=== PATIENT | female | born 1970 | race Caucasian/White ===

== ENCOUNTER 2016-12-30 08:49 | Inpatient (IN) | payer OTHER ==
--- NOTE | 2016-12-21 10:11 | PAT Medication Instructions ---
Service Date Dec 21, 2016. Current Home Medication List Ascorbic Acid (Vitamin C Gummie 120 mg), 1 TAB PO QAM Melatonin (Melatonin Maximum Strengt), 1 TAB PO HS PRN for PRN Oxycodone Ir (Roxicodone Ir), 5 MG PO Q4H PRN for Severe Pain Medication Instructions For Your Scheduled Surgery - Hold the following medications the morning of surgery: Ascorbic Acid (Vitamin C Gummie 120 mg), 1 TAB PO QAM - Take the following medications the morning of surgery with a sip of water OTHERWISE NOTHING TO EAT OR DRINK AFTER MIDNIGHT: Oxycodone Ir (Roxicodone Ir), 5 MG PO Q4H PRN for Severe Pain (may take up to 4 hours prior to surgery if needed) - Take the following medications as scheduled the night before surgery: Melatonin (Melatonin Maximum Strengt), 1 TAB PO HS PRN Oxycodone Ir (Roxicodone Ir), 5 MG PO Q4H PRN for Severe Pain If you have any questions please call us at [phone] or [phone] or [phone]
--- NOTE | 2016-12-21 10:57 | DIAGNOSTIC IMAGING REPORT ---
TWO VIEW CHEST CLINICAL HISTORY: Preoperative examination. FINDINGS: PA and lateral chest radiographs are compared to study dated 08/13/2014. The cardiomediastinal silhouette is unremarkable. The lungs and pleural spaces are clear. There is no pneumothorax. The bony thorax appears intact. Fusion hardware is noted in the lower cervical spine. IMPRESSION: No active disease in the chest. Electronically signed by: Hiren Piña M.D. 12/21/2016 10:56 AM Dictated Date/Time: 12/21/2016 10:55 AM
[2016-12-21 11:27] LABS: BASO % 0.3 %; BASO ABS # 0.02 K/uL (0-0.2); COMPLETE YES; EOS % 1.6 %; HEMATOCRIT 39.6 % (37-47); IG% 0.3 %; LYMPH % 29.8 %; LYMPH ABS # 2.07 K/uL (1.2-3.4); MEAN CORPUSCULAR HEMOGLOBIN 27.7 pg (25-34); MEAN CORPUSCULAR HGB CONC 33.8 g/dl (32-36); MEAN PLATELET VOLUME 9.1 fL (7.4-10.4); MONO % 4.5 %; NEUT % 63.5 %; PLATELET COUNT 253 K/uL (130-400); RED BLOOD COUNT 4.83 M/uL (4.2-5.4); WHITE BLOOD COUNT 6.95 K/uL (4.8-10.8)
[2016-12-21 11:33] LABS: URINE APPEARANCE CLEAR (CLEAR); URINE BILIRUBIN NEG (NEG); URINE COLOR YELLOW; URINE NITRITE NEG (NEG); URINE PH 7.5 (4.5-7.5); URINE SPECIFIC GRAVITY 1.011 (1.000-1.030); UROBILINOGEN NEG (NEG)
[2016-12-21 11:37] LABS: MANUAL MICROSCOPIC REQUIRED? NO; REVIEW REQ? NO
[2016-12-21 11:58] LABS: BUN/CREATININE RATIO 13.7 (10-20); CALCIUM 8.8 mg/dl (8.5-10.1); CREATININE 0.71 mg/dl (0.60-1.20); POTASSIUM 4.3 mmol/L (3.5-5.1)
--- NOTE | 2016-12-29 11:49 | HISTORY & PHYSICAL EXAMINATION ---
DATE OF ADMISSION: 12/30/2016 HISTORY OF PRESENT ILLNESS: The patient presents to our office with complaint of axial neck pain with radiation into the interscapular area. She denies radiating pain into her shoulder and arms. Denies numbness or tingling. She is still working. She has tried epidural injections in [place] as well as massage therapy. Denies dysphonia or dysphagia. PAST MEDICAL HISTORY: Significant for none. PAST SURGICAL HISTORY: Significant for ACDF, tonsillectomy and laparoscopy. ALLERGIES: None listed. MEDICATIONS: She denies. SOCIAL HISTORY: She is . Denies tobacco use and denies alcohol use. REVIEW OF SYSTEMS: Significant for neck pain. FAMILY HISTORY: Significant for cancer and arthritis. REVIEW OF SYSTEMS: Significant for neck pain. PHYSICAL EXAMINATION: HEENT: Speech appropriate. CARDIOPULMONARY: No gross abnormalities. ABDOMEN: Soft, nontender. GENITOURINARY: Deferred. NEUROLOGIC: Cranial nerves II-XII grossly intact. MUSCULOSKELETAL: She has a well-healed anterior cervical incision. Strength is intact bilateral upper extremities. Ambulates with an independent steady gait. ASSESSMENT: Spinal stenosis, possible hardware failure. PLAN: At this point in time, we have reviewed surgical plan, which would include posterior cervical fusion C3 through T3 including possible decompression as well as an anterior approach which would require removal of fractured hardware. She wished to proceed as soon as possible. Risks, benefits, pros, cons, and alternatives were outlined in detail. [place]
[2016-12-30] VITALS (13 sets, daily range): BP systolic 129–180; BP diastolic 67–97; PULSE 56–68; TEMP 36.4–36.8; O2SAT 93–100; Ht 165.1 cm; Wt 83.5 kg
[~2016-12-30] VITALS: Ht 165.1 cm; Wt 83.5 kg
--- NOTE | 2016-12-30 07:30 | History & Physical Bridge Note ---
H&P Re-Evaluation Bridge Note: I have examined the patient, reviewed the History & Physical and in the interval since the performance of the History & Physical I have noted the following changes of clinical significance: No changes noted
[~2016-12-30 08:49] MED LIST: ASCO1CHW13 PO; CEFAZOLIN 2000 MG/60 ML D5W IV SCH; LACTATED RINGER'S 1000ML 1,000 ML IV SCH; LACTATED RINGER'S 1000ML 500 ML IV ONE; MELATAB2 PO; OXYC1TAB3 PO
[2016-12-30] MEDS ORDERED: ONDANSETRON INJ 2 MG/ML 2 ML VIAL IV PRN ×2 (09:45→14:15)
[2016-12-30] MEDS ORDERED: EpHEDrine SULFATE INJ 50 MG/ML AMP IV PRN (09:45)
[2016-12-30] MEDS ORDERED: ATROPINE SULFATE 0.1 MG/ML 5ML SYR IV PRN (09:45)
[2016-12-30] MEDS ORDERED: MIDAZOLAM HCL 1 MG/ML 2ML VIAL ONE (10:22)
[2016-12-30] MEDS ORDERED: FENTANYL CITRATE INJ 50 MCG/1 ML 2 ML VIAL ONE ×6 (10:22→13:52)
[2016-12-30] MEDS ORDERED: BACITRACIN 50000 UNIT VIAL ONE ×2 (10:49→12:45)
[2016-12-30] MEDS ORDERED: THROMBIN FOR SOLN 20000 UNIT KIT ONE (10:49)
[2016-12-30] MEDS ORDERED: BUPIVACAINE/EPINEPHRINE 0.5% MPF 1:200,000 30 ML VIAL ONE (10:49)
[2016-12-30] MEDS ORDERED: HYDROmorphone INJ 2 MG/ML SYR/VIAL ONE ×3 (11:54→14:14)
[2016-12-30] MEDS ORDERED: PROPOFOL IV EMULSION 10 MG/ML 20 ML VIAL IV ONE (13:50)
[2016-12-30] MEDS ORDERED: RANITIDINE HCL 25 MG/ML INJ ONE (13:50)
[2016-12-30] MEDS ORDERED: ROCURONIUM BROMIDE 10 MG/ML 5 ML VIAL ONE (13:50)
[2016-12-30] MEDS ORDERED: DEXAMETHASONE SOD INJ 4 MG/ML VIAL ONE (13:50)
[2016-12-30] MEDS ORDERED: DiphenhydrAMINE HCL 50 MG/ML VIAL ONE (13:50)
[2016-12-30] MEDS ORDERED: ONDANSETRON INJ 2 MG/ML 2 ML VIAL ONE ×2 (13:50→14:19)
[2016-12-30] MEDS ORDERED: LIDOCAINE HCL 2% 2 ML VIAL (20MG/ML) ONE (13:50)
--- NOTE | 2016-12-30 14:03 | [facility] Post Operative Brief Note ---
Immediate Operative Summary Operative Date Dec 30, 2016. Pre-Operative Diagnosis Spinal Stenosis, Hardware failure Post-Operative Diagnosis Spinal Stenosis, Hardware Failure Procedure(s) Performed C3-T3 Posterior Cervical Fusion, Lateral Mass Screw Fixation, With Conduct allograft and Bone Morphogenetic protein; Anterior ceverical Hardware Removal Surgeon Hayley Lamina Searcher Surgeon(s) Aspen Aden PA-C Estimated Blood Loss 100 Findings nonunion Specimens A: Spinal Hardware
[2016-12-30] MEDS ORDERED: ESMOLOL HCL 10 MG/ML 10 ML VIAL ONE (14:08)
[2016-12-30] MEDS ORDERED: FLOSEAL HEMOSTATIC MATRIX 10ML TOP ONE (14:09)
[2016-12-30] MEDS ORDERED: BETADINE OINTMENT (PACKETS) TOP ONE (14:09)
[2016-12-30] MEDS ORDERED: BACITRACIN OINT 15 GM TUBE TOP ONE (14:09)
[2016-12-30] MEDS ORDERED: ACETAMINOPHEN IV 100 ML IV PRN (14:15)
[2016-12-30] MEDS ORDERED: DO NOT ADMINISTER PNEUMOCOCCAL VACCINE PRN ×2 (14:15)
[2016-12-30] MEDS ORDERED: DiphenhydrAMINE HCL 50 MG/ML VIAL IV PRN ×2 (14:15→14:30)
[2016-12-30] MEDS ORDERED: DEXAMETHASONE INJ 8 MG in SYRINGE 0 ML IV PRN (14:15)
[2016-12-30] MEDS ORDERED: LORAZEPAM 0.5 MG TAB PO PRN (14:15)
[2016-12-30] MEDS ORDERED: MAGNESIUM HYDROXIDE SUSP 30 ML UDC PO PRN (14:15)
[2016-12-30] MEDS ORDERED: LORAZEPAM INJ 0.5 MG in SYRINGE 0.75 ML IV PRN (14:15)
[2016-12-30] MEDS ORDERED: DO NOT ADMINISTER FLU VACCINE PRN ×3 (14:15)
[2016-12-30] MEDS ORDERED: HYDROmorphone INJ 0.5 MG/0.5 ML SYR IV PRN (14:15)
[2016-12-30] MEDS ORDERED: NALOXONE HCL 0.4 MG/1 ML VIAL/CARP IV PRN ×2 (14:15→18:15)
[2016-12-30] MEDS ORDERED: RACEPINEPHRINE 2.25% NEBU SOLN 0.5 ML VIAL INH PRN (14:15)
[2016-12-30] MEDS ORDERED: OXYCODONE HCL IR 5 MG TAB (IMMEDIATE RELEASE) PO PRN (14:15)
[2016-12-30] MEDS ORDERED: GLYCOPYRROLATE INJ 0.2 MG/ML VIAL ONE (14:19)
[2016-12-30] MEDS ORDERED: NEOSTIGMINE METHYLSULFATE 1 MG/ML 10ML VIAL ONE (14:19)
[2016-12-30] MEDS: FENTANYL CITRATE INJ 50 MCG/1 ML 2 ML VIAL IV PRN ×4 (14:21→14:36)
[2016-12-30] MEDS ORDERED: HYDROmorphone INJ 1 MG/ML SYR IV PRN ×2 (14:30→16:45)
[2016-12-30] MEDS: HYDROmorphone INJ 1 MG/ML SYR IV PRN ×8 (14:41→15:21)
--- NOTE | 2016-12-30 14:46 | DIAGNOSTIC IMAGING REPORT ---
Cervical SPINE, INTRAOPERATIVE FLUOROSCOPY HISTORY: Posterior and anterior cervical discectomy and fusion. FLUOROSCOPY TIME: 57 seconds. FINDINGS: Intraoperative fluoroscopy was provided for the cervical spine. 5 fluoroscopic spot images were obtained. There is extensive anterior and posterior cervical fusion from C3 to the upper thoracic spine. Exact levels are difficult to confirm on limited images. IMPRESSION: Fluoroscopy provided for a extensive anterior and posterior cervical fusion. Electronically signed by: Roberto Carlos Alford M.D. 12/30/2016 2:45 PM Dictated Date/Time: 12/30/2016 2:43 PM
--- NOTE | 2016-12-30 15:00 | OPERATIVE REPORT ---
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 POSTOPERATIVE DIAGNOSIS: Same. PROCEDURE PERFORMED: 1. Posterior cervical fusion C3-T2. 2. Placement of posterior segmental instrumentation using Globus rods and screws C3-T2. 3. Placement Infuse collagen sponge combined with Mastergraft in the posterior gutters C3-T2. 4. Removal anterior cervical screws at C7 level. SURGEON: Dr. Clarence Hardy. LABOR EXPEDITER: Aspen Aden PA-C. Due to the complex nature of the procedure, the entire surgery was performed with the shop assistant of Aspen Aden PA-C. The assistant elementary teacher, under direct supervision, was involved in the actual performance of all aspects of the surgical procedure including hemostasis, tissue retraction and incision, instrument management, patient positioning, and wound closure. ANESTHESIA: General. DISPOSITION: The patient awakened and taken to PACU in stable condition. HISTORY OF PRESENT ILLNESS: This problem a 46-year-old female who is well known to me that presents with the above-mentioned diagnosis. After failing an extensive course of nonoperative care, elected to undergo the above-mentioned procedure. Risks, benefits, pros, cons, and alternatives were outlined in detail preoperatively. OPERATION AND FINDINGS: PROCEDURE: The patient was met with preoperatively, case discussed and all questions were addressed. At that point the patient was taken back to operative suite and after undergoing successful general intubation by the department of anesthesia was placed in a prone position on chest pad, hip bolsters and Caceres head of science. All bony prominences were well padded and the eyes were inspected to ensure there was no external pressure placed upon them. At this point, the posterior cervical thoracic region was prepped and draped in normal sterile fashion. Sharp dissection with the assistance of Bovie cautery was then performed down to and exposing the lamina and lateral masses of C3, 4, 5, 6, 7, T1, T2. Then with the assistance of fluoroscopy and placed lateral mass screws in C3, 4, 5, 6 and pedicle screws in T1 and T2 bilaterally. Appropriate size rods were then contoured, cut and locked in position bilaterally and the lateral masses facets of C3, 4, 5, 6,7, T1-T2 burred to subcortical bleeding bone. Infuse collagen sponge combined with Mastergraft and locally harvested morselized autograft placed and 7 flat CAYDEN drain inserted. Incision was then closed with 1-0 Vicryl in the fascia, 2-0 Vicryl subcutaneously, 4-0 Monocryl for final skin closure. Steri-Strips and sterile dressing placed. At this point the patient was removed from the prone position, repositioned in the supine position and the anterior cervical spine was prepped and draped in normal sterile fashion. We identified the C7 level and a transverse incision was placed along the left anterior aspect of the cervical spine. Sharp dissection with the assistance of Bovie cautery was performed down to and exposing anterior cervical spine at the C6-C7 level. Obvious loosening of instrumentation was noted. The 2 screws were removed without difficulty. The area was explored to ensure there was no bleeding or damage to surrounding structures and then closed with 1-0 Vicryl in the fascia, 2-0 Vicryl subcutaneously, 4-0 Monocryl for final skin closure. Steri-Strips and sterile dressing placed. The patient was awakened and taken to PACU in stable condition. I attest to the content of the Intraoperative Record and any orders documented therein. Any exceptio ns are noted below.
--- NOTE | 2016-12-30 15:10 | Anesthesiology Progress Note ---
Anesthesia Post Op Note Date & Time Dec 30, 2016 at 15:09 Vital Signs Pain Intensity: 7 Vital Signs Past 12 Hours Date Time Temp Pulse Resp B/P Pulse Ox O2 Delivery O2 Flow Rate FiO2 12/30/16 14:45 55 18 168/83 100 Nasal Cannula 4 12/30/16 14:35 62 10 150/88 100 Mask 10 12/30/16 14:25 66 12 174/100 96 Mask 10 12/30/16 14:16 36.3 88 13 154/95 96 Mask 10 12/30/16 09:31 36.7 62 18 180/96 100 Room Air Notes Mental Status: alert / awake / arousable, participated in evaluation Pt Amnestic to Procedure: Yes Nausea / Vomiting: adequately controlled Pain: adequately controlled Airway Patency, RR, SpO2: stable & adequate BP & HR: stable & adequate Hydration State: stable & adequate Anesthetic Complications: no major complications apparent Patient doing well in pacu, but suspect given the extent of her fusion and her intraoperative requirements for narcotic that she may end up needing increased dose of narcotic on floor from what is currently ordered by ortho. Thus, I am recommending she have continuous pulse oxymetry on floor tonight.
[2016-12-30] MEDS: CHECK SCOPOLAMINE PATCH PLACEMENT SCH ×2 (16:00→23:15)
[2016-12-30] MEDS: LACTATED RINGER'S 1000ML 1,000 ML IV SCH (16:59)
[2016-12-30] MEDS ORDERED: SCOPOLAMINE 1.5 MG TDSY TD SCH (17:00)
[2016-12-30] MEDS ORDERED: NURSING VERBAL MED ORDER ONE ×2 (18:00→18:15)
[2016-12-30] MEDS: SODIUM CHLORIDE 0.9% 1000ML 1,000 ML IV SCH (18:13)
[2016-12-30] MEDS: CEFAZOLIN IV 2,000 MG in DEXTROSE 5% 50ML 50 ML IV SCH (18:15)
[2016-12-30] MEDS ORDERED: HYDROmorphone HCL 0.5MG/ML 50 ML CASSETTE IV PRN (18:15)
[2016-12-30] MEDS: DEXAMETHASONE INJ 6 MG in SYRINGE 0 ML IV SCH (18:16)
[2016-12-30] MEDS: HYDROmorphone HCL 0.5MG/ML 50 ML CASSETTE IV PRN ×2 (18:53→22:51)
[2016-12-30] MEDS: DOCUSATE SODIUM 100 MG CAP PO SCH (20:54)
[2016-12-31] VITALS (18 sets, daily range): BP systolic 125–158; BP diastolic 72–84; PULSE 53–79; TEMP 36.6–37; O2SAT 93–98
[2016-12-31] MEDS: CEFAZOLIN IV 2,000 MG in DEXTROSE 5% 50ML 50 ML IV SCH ×2 (01:26→09:27)
[2016-12-31] MEDS: DEXAMETHASONE INJ 6 MG in SYRINGE 0 ML IV SCH ×2 (01:27→09:27)
[2016-12-31] MEDS: LACTATED RINGER'S 1000ML 1,000 ML IV SCH (05:20)
[2016-12-31] MEDS: HYDROmorphone HCL 0.5MG/ML 50 ML CASSETTE IV PRN ×3 (07:04→22:44)
[2016-12-31] MEDS: CHECK SCOPOLAMINE PATCH PLACEMENT SCH ×3 (07:12→22:51)
[2016-12-31] MEDS ORDERED: KETOROLAC TROMETHAMINE 30 MG/ML VIAL IV PRN (08:45)
--- NOTE | 2016-12-31 08:58 | PROGRESS NOTE ---
DATE: 12/31/2016 DATE: 12/31/2016. SUBJECTIVE: Postop day 1 complaining mostly of cervicalgia consistent with postoperative pain. No arm symptoms. No swallowing difficulties. Vital signs stable. T-max 36.9. CAYDEN drained 65 mL. OBJECTIVE: On exam, she has reasonable strength to testing, appears comfortable. ASSESSMENT: Status post posterior cervical fusion. PLAN: At this time, will maintain CAYDEN drain today, add Toradol for pain control and encourage her to be up and ambulatory and advance her diet. Hopefully home tomorrow.
[2016-12-31] MEDS: DOCUSATE SODIUM 100 MG CAP PO SCH ×2 (09:00→20:55)
--- NOTE | 2016-12-31 10:41 | Anesthesiology Progress Note ---
Anesthesia Post Op Note Date & Time Dec 31, 2016 at 10:41 Vital Signs Vital Signs Past 12 Hours Date Time Temp Pulse Resp B/P Pulse Ox O2 Delivery O2 Flow Rate FiO2 12/31/16 09:15 58 16 138/78 96 Room Air 12/31/16 08:09 Room Air 12/31/16 07:53 54 12 95 Room Air 12/31/16 07:36 36.9 61 19 145/81 93 Room Air 12/31/16 07:05 16 95 Room Air 12/31/16 05:15 36.8 55 14 128/77 98 Nasal Cannula 2.0 12/31/16 03:25 69 16 98 Room Air 12/31/16 03:15 36.8 56 16 125/81 98 Nasal Cannula 2.0 12/31/16 01:15 36.6 53 14 130/84 96 Nasal Cannula 2.0 12/30/16 23:50 63 14 98 Room Air 12/30/16 23:15 36.4 56 16 133/84 99 Nasal Cannula 2.0 12/30/16 23:15 Nasal Cannula 2.0 Notes Mental Status: alert / awake / arousable, participated in evaluation Pt Amnestic to Procedure: Yes Nausea / Vomiting: adequately controlled Pain: adequately controlled Airway Patency, RR, SpO2: stable & adequate BP & HR: stable & adequate Hydration State: stable & adequate Anesthetic Complications: no major complications apparent
[2016-12-31] MEDS: SODIUM CHLORIDE 0.9% 1000ML 1,000 ML IV SCH (15:11)
[2017-01-01] VITALS (7 sets, daily range): BP systolic 125–134; BP diastolic 73–79; PULSE 60–76; TEMP 36.7–36.9; O2SAT 95–98
[2017-01-01] MEDS ORDERED: BISACODYL 10 MG SUPP PR PRN (06:00)
[2017-01-01] MEDS ORDERED: BISACODYL 5 MG TABEC PO PRN (06:00)
[2017-01-01] MEDS: HYDROmorphone HCL 0.5MG/ML 50 ML CASSETTE IV PRN (07:06)
[2017-01-01] MEDS: CHECK SCOPOLAMINE PATCH PLACEMENT SCH (07:12)
[2017-01-01] MEDS: DOCUSATE SODIUM 100 MG CAP PO SCH (08:30)
[2017-01-01] MEDS ORDERED: RXC5 PO (08:52)
--- NOTE | 2017-01-01 08:53 | Discharge Instructions ---
Discharge Instructions Date of Service Jan 01, 2017. Admission Reason for Admission: Spinal Stenosis Discharge Discharge Diagnosis / Problem: neck pain Discharge Goals Goal(s): Improve function Activity Recommendations Activity Limitations: per Instructions/Follow-up section . Instructions / Follow-Up Instructions / Follow-Up ACTIVITY RECOMMENDATIONS: SELF CARE INSTRUCTIONS AFTER CERVICAL FUSIONS 1. No smoking. Smoking drastically decreases the chance of a solid fusion. 2. No bending, lifting more than 5 pounds, or twisting (roll like a log when turning in bed). 3. You may shower 3 days after surgery. Thoroughly dry wound. Do not soak in the tub. 4. Cervical collar: Must be worn at all times including sleeping. You may remove the brace only to bath, eat and if you are sitting in a recliner. 5. Please walk as much as you can for exercise. Gradually increase the distance that you walk as your endurance increases. SPECIAL CARE INSTRUCTIONS: VERY IMPORTANT TO READ AND REVIEW A. Do not take any anti-inflammatory medications (i.e. Indocin, Advil, Aspirin, Naprosyn, Aleve, Motrin, etc.) as these may inhibit the chance of a solid fusion. Tylenol is okay to take. B. Your surgical incision has been closed with a cosmetic suture under the skin that will dissolve in about 6 weeks. In 14 days, you can use a pair of clean scissors and cut the suture that is left outside of the skin at the ends of your incision. C. Complications are uncommon, but please contact us if you have any signs or symptoms of: 1. wound infection (fever higher than 102.5 degrees F, redness, separation of wound, drainage, or increasing pain from the incision) 2. blood clots in legs (pain, swelling, redness and warmth in legs) 3. urinary tract infection (fever higher than 102.5 degrees, burning upon urination or increased frequency of urination) 4. nerve problems (inability to walk on your toes or heels, numbness, loss of bowel or bladder control) 5. any other symptoms that concern you. D. Please call the office at if you have any concerns or questions about your operation or recovery. MANAGING PAIN AFTER SPINAL SURGERY 1. Narcotic medication is intended for short-term use and will be provided for surgical pain. Surgical pain usually lasts for a period of 4-6 weeks. Narcotic medication includes Percocet, Vicodin, Darvocet, Tylenol #3 or Lortab. 2. Longer-term pain is more appropriately treated with non-narcotic medication such as Tylenol ES. 3. Muscle spasm is not appropriately treated with narcotics. Muscle relaxers such as Soma, Flexeril or Skelaxin can be used along with Tylenol ES. 4. Remember that we all live with some "aches and pains". This is not unusual or uncommon after an injury or as we get older. 5. We will provide appropriate medication within the normal guidelines of their prescribed use. We will also be very cautious and aware of potential abuse and extended duration of patients' medication needs. 6. Please allow 2-3 days to process refills. Prescriptions will not be mailed but must be picked up at the office. FOLLOW UP VISIT: Keep your scheduled follow-up appointment. Any questions, please call the office at . Current Hospital Diet Patient's current hospital diet: Regular Diet Discharge Diet Recommended Diet: Regular Diet Procedures Procedures Performed: C3-T3 Posterior Cervical Fusion, Lateral Mass Screw Fixation, With Conduct allograft and Bone Morphogenetic protein; Anterior ceverical Hardware Removal Pending Studies Studies pending at discharge: no Medical Emergencies . Who to Call and When: Medical Emergencies: If at any time you feel your situation is an emergency, please call 911 immediately. . Non-Emergent Contact Non-Emergency issues call your: Primary Care Provider . "Provider Documentation" section prepared by Clarence Hardy. VTE Core Measure Inpt VTE Proph given/why not?: Lisset Foster, [facility]
[2017-01-01] MEDS ORDERED: POLYETHYLENE (MIRALAX) 17 GM PACK PO SCH (09:00)
[2017-01-01] MEDS ORDERED: NURSING VERBAL MED ORDER ONE ×2 (12:00→14:15)
[2017-01-01] MEDS ORDERED: OXYCODONE HCL IR 5 MG TAB (IMMEDIATE RELEASE) ONE (14:28)
--- NOTE | 2017-01-01 15:53 | DISCHARGE SUMMARY ---
PRINCIPAL DIAGNOSIS: Cervical nonunion, cervicalgia. HOSPITAL COURSE FOLLOWS: On 12/30/2016 the patient underwent posterior cervical decompression fusion as well as an anterior hardware removal. The patient tolerated this well, taken to the orthopedic floor postoperatively. Postop day #1, pain was controlled with IV medications. She was up and ambulatory, swallowing without difficulty. No hoarseness. On postop day #2 symptoms improving, still quite uncomfortable. CAYDEN drain significant. Was able to discharge home with home nursing. Discharge orders and instructions can be found in the chart for further review.
== END 2017-01-01 14:47 | disposition home or self-care (01) | DRG 472 ==
LOC: ENRESERVDT → ENRESERVTM → C.ACU 08:49 → C.3E 09:05
PROVIDERS: ADMIT Orthopaedic Surgery Orthopaedic Surgery of the Spine; ATTEND Orthopaedic Surgery Orthopaedic Surgery of the Spine
PROC: 0RG20A1 (ICD-10-PCS; principal; 2016-12-30 10:50)
PROC: 0RG40A1 (ICD-10-PCS; principal; 2016-12-30 10:50)
PROC: 0RP10AZ Removal of Interbody Fusion Device from Cervical Vertebral Joint, Open Approach (ICD-10-PCS; principal; 2016-12-30 10:50)
DX: T84.216A Breakdown (mechanical) of internal fixation device of vertebrae, initial encounter (principal); M96.0 Pseudarthrosis after fusion or arthrodesis; M48.02 Spinal stenosis, cervical region; Y83.1 Surgical operation with implant of artificial internal device as the cause of abnormal reaction of the patient, or of later complication, without mention of misadventure at the time of the procedure

== ENCOUNTER 2019-07-06 07:48 | Observation (INO) ==
[2019-06-23 14:48] LABS: Basophils # (auto) 0.02 K/uL (0-0.2); Basophils % (auto) 0.3 %; Eosinophils # (auto) 0.09 K/uL (0-0.5); Eosinophils % (auto) 1.3 %; Hematocrit (blood only) 39.5 % (37-47); Hemoglobin 13.2 g/dL (12.0-16.0); Immature Granulocytes # (auto) 0.01 K/uL (0.00-0.02); Immature Granulocytes % (auto) 0.1 %; Lymphocytes # (auto) 1.57 K/uL (1.2-3.4); Lymphocytes % (auto) 22.2 %; Mean Corpuscular Hemoglobin 28.8 pg (25-34); Mean Corpuscular Hgb Conc 33.4 g/dL (32-36); Mean Corpuscular Volume 86.1 fL (80-100); Mean Platelet Volume 9.8 fL (7.4-10.4); Monocytes # (auto) 0.48 K/uL (0.11-0.59); Monocytes % (auto) 6.8 %; Neutrophils % (auto) 69.3 %; Platelet Count 271 K/uL (130-400); RDW Coefficient of Variation 12.9 % (11.5-14.5); RDW Standard Deviation 40.7 fL (36.4-46.3); Red Blood Count 4.59 M/uL (4.2-5.4); White Blood Count 7.07 K/uL (4.8-10.8)
[2019-06-23 15:03] LABS: Partial Thromboplastin Ratio 1.1; Partial Thromboplastin Time 30.9 Seconds (21.0-31.0); Prothrombin Time 10.3 Seconds (9.0-12.0)
[2019-06-23 15:07] LABS: BUN Creatinine Ratio 13.6 (10-20); Calcium 9.6 mg/dl (8.5-10.1); Creatinine Clr Calc Pharmacy 112.2 ml/min; Est GFR (African American) 122.2; Est GFR (Non-African American) 105.4; Potassium 4.2 mmol/L (3.5-5.1)
--- NOTE | 2019-06-26 12:44 | Anesthesiology Consultation ---
Date of Service June 26, 2019 Assessment & Plan (1) Encounter for pre-operative examination: Chart Review Chart Review: Acceptable Risk for Surgery and Patient NOT seen in Pre Admission Testing Consults Requested none History Surgery Operation Date: 07/06/19 09:20 Proposed Procedures p L4-L5 Laminectomy, L4-L5 Removal Synovial Cyst - Miles Cali DO Height/Weight Height: 5 ft 5 in Weight: 83.915 kg Allergies Allergy/AdvReac Type Severity Reaction Status Date / Time naproxen AdvReac Unknown RED Verified 05/10/19 08:42 SPLOCHY NECK Medications Home Medications Medication Instructions Recorded Confirmed Last Taken ascorbic acid (vitamin C) [Vitamin 500 mg PO Q OTHER DAY 05/10/19 05/10/19 Unknown C] bupropion HCl [Wellbutrin SR] 100 mg PO BID 05/10/19 05/10/19 Unknown lisinopril 20 mg PO QAM 05/10/19 05/10/19 Unknown oxycodone-acetaminophen [Endocet] 1 tab PO Q6H PRN 05/10/19 05/10/19 Unknown Past Medical History Medical History Anxiety Depression Hypertension Spinal stenosis Past Family History Family History Father FHx: heart disease Past Surgical History Surgical History History of tonsillectomy and adenoidectomy Hx of cervical spine surgery X2 Hx of laparoscopy FOR OVARIAN CYST Social History Smoking Status: Former smoker Do You Dip or Chew Tobacco: No Smoking End Date: 20 YR AGO Hx Alcohol Use: No Hx Substance Use: No Testing Laboratory Results 06/23/19 13:03 06/23/19 13:03 PT 10.3 Seconds (9.0-12.0) 06/23/19 13:03 INR 1.0 (0.9-1.1) 06/23/19 13:03 APTT 30.9 Seconds (21.0-31.0) 06/23/19 13:03
--- NOTE | 2019-07-05 15:52 | History and Physical Report ---
DATE OF ADMISSION: 07/06/2019 CHIEF COMPLAINT: Back pain, buttock pain, lower extremity difficulty, paresthesias. She has a working diagnosis of a large synovial cyst in lumbar spine. PAST MEDICAL HISTORY: Negative for heart disease, diabetes, carcinoma, COPD. PAST SURGICAL HISTORY: Includes cervical spine surgery, fusion. ALLERGIES: Negative. FAMILY HISTORY: Maternal mother with kidney and bladder CA. SOCIAL HISTORY: She is . No alcohol, tobacco. REVIEW OF SYSTEMS: Twelve system review no fevers, sweats, chills. Ear, nose and throat negative. Denies chest pain, palpitations. Denies asthma, wheezing, shortness of breath. No nausea, vomiting. She has joint pain, stiffness, weakness and muscle pain. MEDICATIONS: Wellbutrin, Endocet, lisinopril. EXAMINATION: GENERAL: She is 5 feet 5 inches, 185 pounds, no terrible distress. VITAL SIGNS: Blood pressure 130/80, pulse 80, respirations 16. HEENT: Pupils react to light and accommodation. Nose and throat clear. CARDIAC: Normal S1, no S3. LUNGS: Clear to auscultation. No rales, rhonchi, or wheezing. ABDOMEN: Soft, nontender, bowel sounds present in all quadrants. She is neurologically intact, some loss of sensation. Vascular structures intact. No upper or lower motor neuron issues. X-rays reviewed in detail. She has a large synovial cyst at L4-L5 with minimal instability. PLAN: Includes laminectomy in L4-5; synovial cyst removal.
[~2019-07-06 07:48] MED LIST changes: -ASCO1CHW13 PO; -CEFAZOLIN 2000 MG/60 ML D5W IV SCH; +CEFAZOLIN 2000MG 2,000 MG/15 ML SYR IV SCH; -LACTATED RINGER'S 1000ML 1,000 ML IV SCH; -LACTATED RINGER'S 1000ML 500 ML IV ONE; +LR 15ML/HR IV SCH; -MELATAB2 PO; -OXYC1TAB3 PO; +SODIUM CHLORIDE 0.9% 1000ML IV SCH
[2019-07-06] MEDS ORDERED: MIDAZOLAM HCL 1 MG/ML 2ML VIAL ONE (08:08)
[2019-07-06] MEDS ORDERED: PROPOFOL IV EMULSION 10 MG/ML 20 ML VIAL IV ONE (08:08)
[2019-07-06] MEDS ORDERED: LIDOCAINE HCL 2% 2 ML VIAL/AMP(20MG/ML) INFIL ONE (08:08)
[2019-07-06] MEDS ORDERED: ONDANSETRON INJ 2 MG/ML 2 ML VIAL ONE (08:08)
[2019-07-06] MEDS ORDERED: DEXAMETHASONE SOD INJ 4 MG/ML VIAL ONE (08:08)
[2019-07-06] MEDS ORDERED: fentaNYL citrate 100 MCG/2 ML VIAL ONE (08:08)
[2019-07-06] MEDS ORDERED: NEOSTIGMINE METHYLSULFATE 5 MG/5 ML SYR ONE (08:08)
[2019-07-06] MEDS ORDERED: ROCURONIUM BROMIDE 10 MG/ML 5 ML VIAL ONE (08:08)
[2019-07-06] MEDS ORDERED: GLYCOPYRROLATE 0.2 MG/ML VIAL ONE ×2 (08:08→10:28)
[2019-07-06] MEDS ORDERED: BUPIVACAINE/EPINEPHRINE 0.5% MPF 1:200,000 30 ML VIAL ONE (08:57)
[2019-07-06] MEDS ORDERED: VANCOMYCIN HCL 1000MG/20ML VIAL ONE (08:57)
[2019-07-06] MEDS ORDERED: GELATIN SPONGE SZ 100 ONE (08:58)
[2019-07-06] MEDS ORDERED: THROMBIN FOR SOLN 20000 UNIT KIT ONE (08:58)
[2019-07-06] MEDS ORDERED: BACITRACIN INJ 50,000 UNIT VIAL ONE (08:58)
--- NOTE | 2019-07-06 09:21 | History & Physical Bridge Note ---
Date of Service July 06, 2019 History & Physical Bridge Note I have examined the patient, reviewed the History & Physical and in the interval since the performance of the History & Physical I have noted the following changes of clinical significance: no changes noted
[2019-07-06] MEDS ORDERED: ATROPINE SULFATE 0.1 MG/ML 10ML SYR IV PRN (09:59)
[2019-07-06] MEDS ORDERED: ONDANSETRON INJ 2 MG/ML 2 ML VIAL IV PRN ×2 (09:59→12:12)
[2019-07-06] MEDS ORDERED: ePHEDrine sulfate 50 MG/ML AMP IV PRN (09:59)
[2019-07-06] MEDS ORDERED: PROMETHAZINE HCL 12.5 MG in SODIUM CHLORIDE 0.9% 50 ML IV PRN (09:59)
--- NOTE | 2019-07-06 10:55 | Post Operative Brief Note ---
PG Immediate Post Op with CF Date of Surgery July 06, 2019 Pre & Post Diagnosis Operation Date: 07/06/19 09:20 Pre-Op Diagnosis: Disc Herniation, Synovial Cyst Post-Op Diagnosis: Disc Herniation, Synovial Cyst Procedure Operation Date: 07/06/19 09:20 Actual Procedures p L4-L5 Laminectomy, L4-L5 Removal Synovial Cyst(Not Applicable) - Miles Cali DO Surgeon Miles Cali DO Mounting Inspector you Estimated Blood Loss 100 Findings Consistent with Post-Op Diagnosis Specimens Specimen Description: none per surgeon Drains Hemovac Drain Complications none Overlapping Procedure I was immediately available: during the entire case.
[2019-07-06] MEDS: fentaNYL citrate 100 MCG/2 ML VIAL IV PRN ×2 (10:56→11:03)
[2019-07-06] MEDS: HYDROmorphone INJ 2 MG/ML SYR/VIAL IV PRN ×4 (11:10→11:32)
--- NOTE | 2019-07-06 11:40 | Anesthesiology Progress Note ---
Date of Service July 06, 2019 Anesthesia Post Procedure Vital Signs Vital Signs: Temp Pulse Pulse Resp BP Pulse Ox 07/06/19 11:30 72 14 135/88 93 07/06/19 11:20 66 16 133/70 95 07/06/19 11:10 61 19 142/80 H 100 07/06/19 11:00 66 19 142/82 H 100 07/06/19 10:50 36.8 C 77 12 147/78 H 98 07/06/19 08:18 36.9 C 72 18 134/81 100 Pain Intensity Lower Back: Pain Intensity: 5 Transfer of Care Handoff Completed per policy Notes Mental Status: alert / awake / arousable and participated in evaluation Patient Amnestic to Procedure: Yes Nausea / Vomiting: adequately controlled Pain: adequately controlled Airway Patency, RR, SpO2: stable & adequate BP & HR: stable & adequate Hydration State: stable & adequate Anesthetic Complications: no major complications apparent and Pt Satisfied with anesthetic care
--- NOTE | 2019-07-06 11:55 | Fluoroscopy Report ---
INTRAOPERATIVE RADIOGRAPH CLINICAL HISTORY: L4-L5 laminectomy. Fluoroscopy time: 2 seconds. FINDINGS: A single spot fluoroscopic view of the lumbosacral junction is presented. A surgical probe projects posterior to the L5 vertebral body. IMPRESSION: Intraoperative image as above. Electronically signed by: Hiren Piña M.D. 07/06/2019 11:54 AM
[2019-07-06] MEDS ORDERED: ACETAMINOPHEN 1,000 MG/100 ML VIAL IV PRN (12:12)
[2019-07-06] MEDS ORDERED: HYDROmorphone INJ 1 MG/ML SYRINGE IV PRN (12:12)
[2019-07-06] MEDS ORDERED: MAGNESIUM HYDROXIDE SUSP 30 ML UDC PO PRN (12:12)
[2019-07-06] MEDS ORDERED: OXYCODONE HCL IR 5 MG TAB (IMMEDIATE RELEASE) PO PRN (12:12)
[2019-07-06] MEDS: SODIUM CHLORIDE 0.9% 1000ML 1,000 ML IV SCH (12:18)
--- NOTE | 2019-07-06 12:32 | Operative Report ---
DATE OF OPERATION: 07/06/2019 PREOPERATIVE DIAGNOSIS: Stenosis and large synovial cyst L4-L5 lumbar spine. POSTOPERATIVE DIAGNOSIS: Stenosis and large synovial cyst L4-L5 lumbar spine. PROCEDURE: Laminectomy, foraminotomy, partial facetectomy and excision of large synovial cyst, lumbar spine at L4-L5. SURGEON: Miles Cali DO BIOSOLIDS MANAGEMENT TECHNICIAN: Benji Wang PA-C. DESCRIPTION OF PROCEDURE: The patient was identified in the preop holding area, marked, bridge note provided. She was brought safely back to the operating room, a general intubated anesthetic provided to the patient, placed prone, scrubbed, prepped and draped sterile. A formal timeout was provided. We used C-arm to localize the area, cut down on the L4-L5 interspace dissecting the soft tissue, same plane, putting in a deep self-retaining retractor. I carefully did a laminotomy and laminectomy at the L4-L5 region. I preserved the facet joints, I preserved the pars interarticularis. I carefully and meticulously took all the ligamentum flavum and synovial cyst type material off the dura itself. Each nerve root was free, which would be the 4 and 5 nerve roots. There was no obvious compression. I did not examine the disc. There was no evidence of herniation. We irrigated, closed in layers over vancomycin powder. Sterile dressings applied. The patient extubated to PACU stable. Again, no apparent complications. Sponge and needle count correct. ESTIMATED BLOOD LOSS: 100 mL or less. I attest to the content of the Intraoperative Record and any orders documented therein. Any exception s are noted below.
[2019-07-06] MEDS: HYDROmorphone INJ 0.5 MG/0.5 ML SYR IV PRN ×2 (13:13→16:22)
[2019-07-06] MEDS: CEFAZOLIN 2000MG 2,000 MG/15 ML SYR IV SCH (16:21)
[2019-07-06] MEDS: OXYCODONE HCL IR 5 MG TAB (IMMEDIATE RELEASE) PO PRN (17:48)
[2019-07-06] MEDS: HYDROmorphone INJ 1 MG/ML SYRINGE IV PRN (19:48)
[2019-07-06] MEDS: DOCUSATE SODIUM 100 MG CAP PO SCH (20:52)
[2019-07-06] MEDS: BuPROPion SR 100 MG TABCR PO SCH (20:52)
[2019-07-07] MEDS: CEFAZOLIN 2000MG 2,000 MG/15 ML SYR IV SCH ×2 (00:12→07:34)
[2019-07-07] MEDS: HYDROmorphone INJ 1 MG/ML SYRINGE IV PRN ×3 (00:13→07:29)
[2019-07-07] MEDS: SODIUM CHLORIDE 0.9% 1000ML 1,000 ML IV SCH (00:13)
[2019-07-07] MEDS: BuPROPion SR 100 MG TABCR PO SCH (08:54)
[2019-07-07] MEDS: DOCUSATE SODIUM 100 MG CAP PO SCH (08:54)
[2019-07-07] MEDS ORDERED: lisinopriL 20 MG TAB PO SCH (09:00)
--- NOTE | 2019-07-07 09:43 | Anesthesiology Progress Note ---
Date of Service July 07, 2019 Anesthesia Post Procedure Vital Signs Vital Signs: Temp Pulse Pulse Pulse Resp BP Pulse Ox 07/07/19 09:25 36.5 C 56 L 68 16 102/66 98 07/07/19 07:27 36.5 C 56 L 16 102/66 98 07/07/19 03:35 36.6 C 58 L 15 123/81 99 07/07/19 03:09 36.5 C 55 L 16 110/67 98 07/06/19 23:17 36.7 C 52 L 15 107/62 98 07/06/19 19:03 36.9 C 68 16 111/70 97 07/06/19 15:08 36.7 C 58 L 16 123/82 95 07/06/19 14:00 87 16 132/77 99 07/06/19 13:05 68 16 157/90 H 100 07/06/19 12:38 67 18 141/71 H 99 07/06/19 12:05 36.8 C 72 16 125/75 100 07/06/19 11:40 36.4 C L 61 15 138/74 100 07/06/19 11:30 72 14 135/88 93 07/06/19 11:20 66 16 133/70 95 07/06/19 11:10 61 19 142/80 H 100 07/06/19 11:00 66 19 142/82 H 100 07/06/19 10:50 36.8 C 77 12 147/78 H 98 Pain Intensity Lower Back: Pain Intensity: 6 Notes Mental Status: alert / awake / arousable Patient Amnestic to Procedure: Yes Nausea / Vomiting: adequately controlled Pain: adequately controlled Airway Patency, RR, SpO2: stable & adequate BP & HR: stable & adequate Hydration State: stable & adequate Anesthetic Complications: no major complications apparent and Pt Satisfied with anesthetic care
[2019-07-07] MEDS: OXYCODONE HCL IR 5 MG TAB (IMMEDIATE RELEASE) PO PRN (10:34)
--- NOTE | 2019-07-08 01:48 | Discharge Summary ---
HOSPITAL COURSE: She was admitted postoperatively for a lumbar spine laminectomy and removal of cyst on her lumbar spine. She has done well. She has had an uneventful 20-hour stay in the hospital. She is alert, oriented. No chest pain, shortness of breath nor confusion. Vital signs stable. Temperature 36.5. Moves all extremities. ASSESSMENT: Status post decompression of spinal canal lumbar surgery. PLAN: Includes discharge home later on this morning. Dressing changes. She has instructions, precautions given in the office and in the hospital.
[2019-07-08] MEDS ORDERED: bisacodyL 5 MG TABEC PO PRN (06:00)
== END 2019-07-07 13:00 | disposition home or self-care (01) ==
LOC: 3E 07:48 → ASU 07:48